=== PATIENT | male | born 1960 | race Caucasian/White ===

== ENCOUNTER 2022-08-02 10:54 | Outpatient (CLI) | payer OTHER, SELFPAY ==
--- NOTE | ~2022-08-02 | XR_ITS ---
EXAMINATION: XR lumbar spine 2-3V DATE: 08/02/2022 11:16 INDICATION: Chronic low back pain TECHNIQUE: Anteroposterior and lateral views of the lumbar spine, and cone-down lateral view of the l umbosacral junction were obtained. COMPARISON: 12/24/2009 FINDINGS: 11 degree lumbar levoscoliosis. 6 mm anterolisthesis T12 on L1. 2 mm retrolisthesis L3 on L4 and L4 o n L5. Mild upper lumbar kyphosis with interval progression of severe disc height loss at L1-L2 as wel l as of likely degenerative mild anterior wedging at both vertebral bodies with 20% anterior vertebra l body height loss and associated Modic type III sclerotic endplate changes. There is also been prog ression of severe posterior disc height loss with vacuum phenomena at L5-S1 and new mild posterior we dging of L5 with 20% posterior vertebral body height loss. Remaining vertebral body heights are diandra l. Progression of additional disc height loss at L3-L4 and L4-L5, moderate disc height loss at L2-L3 and mild disc height loss at T12-L1. There has also been interval enlargement of degenerative anterio r endplate osteophytes at each of these levels as well as new Modic type III sclerotic endplate hathaway es at L3-L4. Moderate lower lumbar predominant facet osteoarthritis. Sacral arches are intact. Mild b ilateral sacroiliac osteoarthritis. IMPRESSION: 1. 11 degree lumbar levoscoliosis with significant interval progression of severe lumbar spondylosis. Reviewed, dictated and finalized at location B. TURNER IMPRESSION: 1. 11 degree lumbar levoscoliosis with significant interval progression of bryce re lumbar spondylosis.
== END 2022-08-02 10:55 | disposition home or self-care (01) ==
LOC: ANHIMG 11:02
PROVIDERS: PCP Physician Assistant; Visit Provider Physician Assistant
DX: M54.50 Low back pain, unspecified (principal); M41.86 Other forms of scoliosis, lumbar region; M43.06 Spondylolysis, lumbar region
CPT/HCPCS: 72100

== ENCOUNTER 2023-12-20 07:52 | Emergency (ER) | payer MEDICARE, MEDICAID, SELFPAY ==
--- NOTE | ~2023-12-20 | XR_ITS ---
XR shoulder RT min 2V 12/20/2023 08:28 Indication: Right shoulder pain after recent fall Procedure: 4 views right shoulder Comparison: No prior studies for comparison. Findings: There is a nondisplaced fracture distal aspect of the right clavicle. Acromioclavicular erich nt appears to be intact. There is mild osteoarthritis of the glenohumeral joint. Impression: 1: Nondisplaced fracture distal aspect of the right clavicle. Reviewed, dictated and finalized at location B. Impression: 1: Nondisplaced fracture distal aspect of the right clavicle.
[2023-12-20 07:53] VITALS: BP 142/91; PULSE 85; RESP 16; TEMP 36.4; O2SAT 97
--- NOTE | 2023-12-20 08:43 | ED.UPPEXIN ---
HPI - Extremity Injury (Upper) General Chief Complaint: Extremity Injury, Upper Stated Complaint: Fall to R shoulder Time Seen by Provider: 12/20/23 07:59 Source: patient Mode of arrival: ambulatory Limitations: no limitations History of Present Illness HPI narrative: 63-year-old here with complaints of right shoulder pain. Patient states that he fell 2 days ago on rocks. Patient states he had couple of beer he was walking along with his friend slipped and fell. He denies any head and neck injuries no LOC. MD complaint: injury to: shoulder Onset (ago): day(s) (2) Place: outdoors Severity: moderate Relieving factors: none Exacerbating factors: movement of extremity Context: fall Associated symptoms: denies other symptoms Related Data Allergies Allergy/AdvReac Type Severity Reaction Status Date / Time No Known Allergies Allergy Verified 12/20/23 07:57 Review of Systems Review of Systems: All systems reviewed & are unremarkable except as noted in HPI and below Constitutional: Constitutional: Reports no additional constitutional complaints Eyes: Eyes: Reports no additional eye complaints ENT: Reports system reviewed and no additional complaints, except as documented Cardiovascular: Cardiovascular: Reports no additional cardiovascular complaints Respiratory: Respiratory: Reports no additional respiratory complaints Gastrointestinal: Gastrointestinal: Reports no additional gastrointestinal complaints Musculoskeletal: Musculoskeletal: Reports as per HPI Integumentary/Breasts: Skin/Breast: Reports system reviewed and no additional complaints, except as docu Neurologic: Reports system reviewed and no additional complaints, except as documented Exam Narrative: GENERAL: Well-appearing, well-nourished, and in no acute distress. HEAD: Normocephalic, atraumatic. EYES: PERRLA and EOMI. ENT: Nares clear, no rhinorrhea or epistaxis. Mucous membranes moist. NECK: Supple. CHEST: Clear to auscultation. No respiratory distress. HEART: Regular rate and rhythm. No murmur heard. Normal peripheral pulses. ABDOMEN: Soft, nontender, nondistended, normal active bowel sounds. EXTREMITIES: Normal range of motion. No edema. Examination of the right shoulder moderate soft tissue swelling and bruising noted along the right pectoral area painful ROM. SKIN: Warm, dry, no rash. NEURO: No focal deficits. Alert and oriented x3. PSYCH: Normal mood and affect. Course Course Emergency Course: Informed patient about his x-ray findings. Advised to take pain medication as prescribed, follow-up with orthopedic Vital Signs Vital signs: Vital Signs Temperature 36.4 C 12/20/23 07:53 Pulse Rate 85 12/20/23 07:53 Respiratory Rate 16 12/20/23 07:53 Blood Pressure 142/91 H 12/20/23 07:53 Pulse Oximetry 97 12/20/23 07:53 Oxygen Delivery Room Air 12/20/23 07:53 Temperature 36.4 C 12/20/23 07:53 Pulse Rate 85 12/20/23 07:53 Respiratory Rate 16 12/20/23 07:53 Blood Pressure 142/91 H 12/20/23 07:53 Pulse Oximetry 97 12/20/23 07:53 Oxygen Delivery Room Air 12/20/23 07:53 MDM - Extremity Injury (Upper) Imaging Data Attestation: I personally reviewed and interpreted this imaging study as follows: My impression: Clavicle fracture Radiologist's impression: ITS Impressions Shoulder X-Ray 12/20/23 08:29 Impression: 1: Nondisplaced fracture distal aspect of the right clavicle. Discharge Plan Discharge Clinical Impression: Fracture of clavicle Qualifiers: Encounter type: initial encounter Clavicle location: lateral end Fracture type: closed Fracture alignment: nondisplaced Laterality: right Qualified Code(s): S42.034A - Nondisplaced fracture of lateral end of right clavicle, initial encounter for closed fracture Patient Disposition: Home, Self-Care Condition: Stable Instructions: Clavicle Fracture (ED), How to Use a Sling (ED) Additional Instructions: Take pain m
== END 2023-12-20 09:02 | disposition home or self-care (01) ==
PROVIDERS: Emergency Provider Family Medicine; PCP Physician Assistant
DX: S42.034A Nondisplaced fracture of lateral end of right clavicle, initial encounter for closed fracture (principal); W19.XXXA Unspecified fall, initial encounter
CPT/HCPCS: 73030; 99284; A4565

== ENCOUNTER 2024-11-01 07:17 | Outpatient (CLI) | payer MEDICARE, MEDICAID, SELFPAY ==
--- NOTE | ~2024-11-01 | MR_ITS ---
EXAMINATION: MR lumbar spine wo con DATE: 11/01/2024 07:52 INDICATION: Lumbar radicular pain TECHNIQUE: Magnetic resonance imaging (MRI) of the lumbar spine was performed without intravenous con trast. Sequences included sagittal T2-weighted FSE, sagittal T2-weighted FS FSE, sagittal T1-weighted FSE, and axial T2-weighted FSE. COMPARISON: Lumbar spine radiographs dated 08/02/2022 FINDINGS: 10 degrees thoracolumbar levocurvature. 2 mm anterolisthesis of and T11 on T12 and T12 on L1, 2 mm re trolisthesis L2 on L3 and 4 mm retrolisthesis L3 on L4 and L4 on L5. Mild upper lumbar kyphosis with chronic compression fractures with 20% anterior vertebral body height loss at T12-L3. Severe disc hei ght loss with associated fibrofatty and fibrovascular degenerative endplate changes at L1-L2, L3-L4 a nd, L4-L5 and L5-S1. Moderate disc height loss at L2-L3 and mild disc height loss at T11-T12 and T12- L1.There is marrow edema bilaterally at the posterior elements of T11 and T12. The tip of the conus m edullaris is difficult to distinguish from the nerve roots residual from multilevel central canal joanna nosis which will be further detailed below. The tip is likely located between the levels of T12-L1 an d L1-L2. There is normal signal in the caudal spinal cord. Paravertebral soft tissues are unremarkabl e. The following disc levels are specifically discussed: T11-T12: Disc is bulging with annular fissure. There is hypertrophy of the ligamentum flavum. There is severe bilateral facet osteoarthritis. There is moderate left and mild to moderate right neural fo raminal stenosis. There is moderate central canal stenosis. T12-L1: Disc is bulging. There is hypertrophy of the ligamentum flavum. There is moderate bilateral f acet joint osteoarthritis. There is mild right and moderate left neural foraminal stenosis. There is moderate central canal stenosis. L1-L2: Disc is bulging with annular fissure. There is mild bilateral facet joint osteoarthritis. Ther e is moderate right and mild to moderate left neural foraminal stenosis. There is severe central ru l stenosis. L2-L3: The disc does not extend beyond the endplate margin. There is mild bilateral facet joint osteo arthritis. There is moderate bilateral neural foraminal stenosis. There is severe central canal steno sis. L3-L4: Disc is bulging with annular fissure. There is mild bilateral facet joint osteoarthritis. Ther e is severe bilateral neural foraminal stenosis. There is severe central canal stenosis. L4-L5: Disc is bulging with annular fissure. There is mild bilateral facet joint osteoarthritis. Ther e is severe left and moderate to severe right neural foraminal stenosis. There is severe central ru l stenosis. L5-S1: Disc is bulging. There is moderate bilateral facet joint osteoarthritis. There is moderate to severe bilateral neural foraminal stenosis. There is mild central canal stenosis. IMPRESSION: 1. Severe lumbar spondylosis with multilevel severe central canal and bilateral neural foraminal sten osis from L1-L2 through L4-L5. Reviewed, dictated and finalized at location A. IMPRESSION: 1. Severe lumbar spondylosis with multilevel severe central canal and bilateral neural foraminal stenosis from L1-L2 through L4-L5.
== END 2024-11-01 07:18 | disposition home or self-care (01) ==
LOC: MICIMG 07:18
PROVIDERS: PCP Nurse Practitioner Family; Visit Provider Nurse Practitioner Family
DX: M47.26 Other spondylosis with radiculopathy, lumbar region (principal)
CPT/HCPCS: 72148